=== PATIENT | female | born 2000 | race Caucasian/White ===

== ENCOUNTER 2023-12-10 07:53 | Emergency (ER) | payer OTHER ==
[2023-12-10] MEDS ORDERED: Ketorolac Tromethamine 30 MG (1 mL) VIAL ONE (08:24)
[2023-12-10] MEDS ORDERED: Pantoprazole 40 MG VIAL ONE (08:24)
[2023-12-10] MEDS ORDERED: Ondansetron PF 4 MG/2 ML Vial ONE (08:24)
[2023-12-10 08:45] LABS: BHCG - Serum Negative (NEGATIVE); Pregs Control Background? CLEAR/WHITE (CLR/WHITE); Pregs Control Bar Appear? YES (CONTROL BAR)
[2023-12-10 08:53] LABS: ALT (SGPT) 13 U/L (8-55); AST (SGOT) 16 U/L (5-34); Albumin 4.9 g/dL (3.5-5.0); Alkaline Phosphatase 82 U/L (40-110); Anion Gap 18 mmol/L (10-20); BUN (Urea Nitrogen) 8 mg/dL (7.0-18.7); Bilirubin, Total 0.5 mg/dL (0.2-1.2); Calc. Creatinine Clearance 0 mL/min (70-130); Calcium 10.1 mg/dL (7.8-10.44); Carbon Dioxide 20 mmol/L (22-29); Chloride 104 mmol/L (98-107); Estimated GFR 85; Globulin 4.2 g/dL (2.4-3.5); Glucose 102 mg/dL (70-105); Lipase 22 U/L (8-78); Potassium 3.3 mmol/L (3.5-5.1); Protein, Total 9.1 g/dL (6.0-8.3); Sodium 139 mmol/L (136-145)
[2023-12-10 08:55] LABS: #Basophils 0.05 10x3/uL (0.0-0.2); #Eosinophils 0.07 10x3/uL (0.0-0.5); #Monocytes 0.57 10x3/uL (0.0-1.1); #Neutrophils 7.84 10x3/uL (1.5-8.4); %Basophils 0.5 % (0.0-2.0); %Eosinophils 0.7 % (0.0-6.0); %Lymphocytes 15.7 % (18.0-47.0); %Monocytes 5.6 % (0.0-10.0); %Neutrophils 77.2 % (40.0-75.0); Hematocrit 37.2 % (34.9-44.5); Mean Corpuscular HGB CONC 32.3 g/dL (32.0-36.0); Mean Corpuscular Hemoglobin 25.7 pg (27.0-33.0); Mean Corpuscular Volume 79.7 fL (81.6-98.3); Mean Platelet Volume 9.8 fL (7.4-10.4); Platelet Count 538 10x3/uL (150-450); RBC Distribution Width 16.8 % (11.5-14.5); Red Blood Cell (RBC) Count 4.67 10x6/uL (3.90-5.03); White Blood Cell (WBC) Count 10.2 10x3/uL (3.5-10.5)
[2023-12-10 09:27] LABS: Bilirubin Neg (Negative); Blood, Urine Negative (Negative); Glucose, Urine (Dipstick) Normal (Negative); Ketone, Urine 50 mg/dL (Negative); Leukocyte 25 (Negative); Nitrite Negative (Negative); Protein, Urine (Dipstick) 30 mg/dl (Neg-Trace); Urobilinogen Normal mg/dL (Less than 2)
[2023-12-10 09:29] LABS: Clarity Clear (Clear)
[2023-12-10 10:14] LABS: CAUTI Indications for Culture Pelvic or flank pain; RBC/HPF 0-3 HPF (0-3); WBC/HPF 0-3 HPF (0-3)
[2023-12-10 10:15] LABS: Bacteria/HPF 1+ HPF (None Seen); Mucous/LPF 1+ LPF (<2+)
[2023-12-10 10:16] LABS: Urine Culture Reflex No No
== END 2023-12-10 10:55 | disposition home or self-care (01) ==
LOC: CSHERS 07:53
DX: R11.2 Nausea with vomiting, unspecified (principal); R19.7 Diarrhea, unspecified; Z55.6 Problems related to health literacy
CPT/HCPCS: 80053; 81001; 83690; 84703; 85025; 87428; 96374; 96375; J1885; J2405; J2470

== ENCOUNTER 2023-12-11 05:23 | Observation (INO) | payer OTHER ==
[2023-12-11] MEDS ORDERED: Haloperidol Lactate 5 MG/ML VIAL ONE (06:05)
[2023-12-11 06:17] LABS: #Basophils 0.07 10x3/uL (0.0-0.2); #Eosinophils 0.23 10x3/uL (0.0-0.5); #Monocytes 1.28 10x3/uL (0.0-1.1); #Neutrophils 6.87 10x3/uL (1.5-8.4); %Basophils 0.6 % (0.0-2.0); %Eosinophils 1.8 % (0.0-6.0); %Lymphocytes 32.5 % (18.0-47.0); %Monocytes 10.2 % (0.0-10.0); %Neutrophils 54.6 % (40.0-75.0); Hematocrit 32.2 % (34.9-44.5); Mean Corpuscular HGB CONC 34.2 g/dL (32.0-36.0); Mean Corpuscular Hemoglobin 26.6 pg (27.0-33.0); Mean Platelet Volume 9.9 fL (7.4-10.4); Platelet Count 504 10x3/uL (150-450); Red Blood Cell (RBC) Count 4.13 10x6/uL (3.90-5.03); White Blood Cell (WBC) Count 12.6 10x3/uL (3.5-10.5)
[2023-12-11 06:33] LABS: Acetaminophen Less than 10 mcg/mL (Less than 10); Alcohol Less than 10.0 mg/dL (Less than 10); Salicylate Less than 8.0 mg/dL (Less than 8.0)
[2023-12-11 06:36] LABS: ALT (SGPT) 14 U/L (8-55); AST (SGOT) 14 U/L (5-34); Albumin 4.3 g/dL (3.5-5.0); Alkaline Phosphatase 81 U/L (40-110); Anion Gap 20 mmol/L (10-20); BUN (Urea Nitrogen) 7 mg/dL (7.0-18.7); Bilirubin, Total 0.5 mg/dL (0.2-1.2); Calc. Creatinine Clearance 0 mL/min (70-130); Calcium 9.9 mg/dL (7.8-10.44); Carbon Dioxide 14 mmol/L (22-29); Chloride 109 mmol/L (98-107); Estimated GFR 77; Globulin 3.4 g/dL (2.4-3.5); Glucose 200 mg/dL (70-105); Lipase 28 U/L (8-78); Potassium 3.3 mmol/L (3.5-5.1); Protein, Total 7.7 g/dL (6.0-8.3); Sodium 140 mmol/L (136-145)
[2023-12-11] MEDS ORDERED: Metoclopramide HCl 10 MG (2 mL) VIAL ONE (06:37)
[2023-12-11 06:56] LABS: Bilirubin Neg (Negative); Blood, Urine Negative (Negative); Clarity Slightly Cloudy (Clear); Glucose, Urine (Dipstick) Normal (Negative); Ketone, Urine 50 mg/dL (Negative); Leukocyte Negative (Negative); Nitrite Negative (Negative); Protein, Urine (Dipstick) 100 mg/dl (Neg-Trace); Specific Gravity, Urine 1.015 (1.005-1.030); Urobilinogen Normal mg/dL (Less than 2); pH, Urine 6.5 (5.0-9.0)
[2023-12-11 07:04] LABS: Amphetamine Not Detected (NotDetected); Barbiturates Screen Not Detected (NotDetected); Benzodiazepine Screen Not Detected (NotDetected); Cocaine Metabolite Screen Not Detected (NotDetected); Methadone Not Detected (NotDetected); Methamphetamine Not Detected (NotDetected); Opiate Screen Not Detected (NotDetected); Oxycodone Screen Not Detected (NotDetected); Phencyclidine (PCP) Not Detected (NotDetected); THC/Cannabinoid Screen Detected (NotDetected); Tricyclic Screen Not Detected (NotDetected)
[2023-12-11 07:07] LABS: Bacteria/HPF 2+ HPF (None Seen); CAUTI Indications for Culture Pelvic or flank pain; RBC/HPF 0-3 HPF (0-3)
[2023-12-11 07:08] LABS: Urine Culture Reflex No No
[2023-12-11] MEDS ORDERED: Morphine 4 MG/ML VIAL ONE (07:50)
[2023-12-11] MEDS ORDERED: diphenhydrAMINE 50 MG/ML VIAL ONE (07:50)
[2023-12-11] MEDS ORDERED: Magnesium 2 GM/50 ML BAG (IN WATER) ONE (08:20)
[2023-12-11] MEDS ORDERED: Acetaminophen 325 MG TAB PO PRN (09:17)
[2023-12-11] MEDS ORDERED: Potassium Chloride 20 MEQ (100 mL) BAG ONE (12:38)
[2023-12-11] MEDS: Potassium Chloride 20 MEQ in Premix 1 BAG IVPB SCH ×2 (12:41→21:25)
[2023-12-11] MEDS ORDERED: Iopamidol 370 76% 100 ML VIAL ONE (12:57)
[2023-12-11] MEDS: Promethazine HCl 12.5 MG in Sodium Chloride 0.9% 50 ML IVPB PRN (13:13)
[2023-12-11 14:33] VITALS: BMI 21.2
[2023-12-11] MEDS: Capsaicin 0.025% Cream 60 gm Tube TOP SCH (15:50)
[2023-12-11] MEDS: Ondansetron PF 4 MG/2 ML Vial IVP PRN (16:05)
[2023-12-11] MEDS: Multivitamins, Adult 10 ML, Folic Acid 1 MG, Thiamine HCl 100 MG, Admixture Fee 1 EACH ... IV SCH (16:05)
[2023-12-11] MEDS: Ketorolac Tromethamine 30 MG (1 mL) VIAL IVP PRN (16:45)
[2023-12-11] MEDS ORDERED: Albuterol 2.5 MG (3 mL) NEB NEB PRN (19:05)
[2023-12-11] MEDS: traZODone HCl 50 MG TAB PO PRN (21:25)
[2023-12-11] MEDS: Lorazepam 2 MG/ML VIAL SLOW IVP SCH (23:06)
[2023-12-12 03:28] LABS: #Basophils 0.03 10x3/uL (0.0-0.2); #Eosinophils 0.01 10x3/uL (0.0-0.5); #Monocytes 2.07 10x3/uL (0.0-1.1); %Basophils 0.2 % (0.0-2.0); %Eosinophils 0.1 % (0.0-6.0); %Lymphocytes 15.3 % (18.0-47.0); %Monocytes 11.6 % (0.0-10.0); %Neutrophils 72.4 % (40.0-75.0); Hematocrit 28.9 % (34.9-44.5); Hemoglobin 9.6 g/dL (12.0-15.5); Mean Corpuscular HGB CONC 33.2 g/dL (32.0-36.0); Mean Corpuscular Hemoglobin 26.5 pg (27.0-33.0); Mean Corpuscular Volume 79.8 fL (81.6-98.3); Platelet Count 417 10x3/uL (150-450); RBC Distribution Width 17.2 % (11.5-14.5); Red Blood Cell (RBC) Count 3.62 10x6/uL (3.90-5.03); White Blood Cell (WBC) Count 17.8 10x3/uL (3.5-10.5)
[2023-12-12 03:49] LABS: Anion Gap 14 mmol/L (10-20); BUN (Urea Nitrogen) 5 mg/dL (7.0-18.7); Calc. Creatinine Clearance 93 mL/min (70-130); Carbon Dioxide 17 mmol/L (22-29); Chloride 111 mmol/L (98-107); Estimated GFR 105; Glucose 100 mg/dL (70-105); Potassium 3.4 mmol/L (3.5-5.1); Sodium 139 mmol/L (136-145)
[2023-12-12] MEDS: hydrOXYzine 25 MG TAB PO SCH (09:46)
[2023-12-12] MEDS: Potassium Chloride 20 MEQ TAB PO SCH (09:47)
[2023-12-12] MEDS: Pantoprazole 40 MG VIAL IVP SCH (09:47)
[2023-12-12] MEDS: Sertraline 25 MG TAB PO SCH (09:48)
[2023-12-12] MEDS: Enoxaparin 30 MG (0.3 mL) SYRINGE SC SCH (09:54)
[2023-12-12] MEDS: Lactated Ringer's 1,000 ML IV SCH (10:05)
[2023-12-12 10:39] VITALS: BP 110/76; TEMP 98.1
[2023-12-12] MEDS ORDERED: hydrOXYzine 25 MG TAB PO SCH (15:00)
== END 2023-12-12 11:10 | disposition home or self-care (01) ==
LOC: CSHERS 05:23 → CSHERHOLD 08:56 → CSHTELE 14:34
PROVIDERS: ADMIT Internal Medicine; ATTEND Internal Medicine
DX: K58.9 Irritable bowel syndrome, unspecified (principal); F12.10 Cannabis abuse, uncomplicated; E87.6 Hypokalemia; Z88.1 Allergy status to other antibiotic agents; Z88.8 Allergy status to other drugs, medicaments and biological substances; Z79.899 Other long term (current) drug therapy
CPT/HCPCS: 36415; 74177; 80048; 80053; 80306; 80307; 81001; 83690; 85025; 93005; 94760; 94762; 96375; 96376; G0378; J1200; J1630; J1885; J2060; J2272; J2405; J2470; J2550; J2765; J3411; J3475; J3480; J7042; Q9967

== ENCOUNTER 2023-12-13 06:34 | Emergency (ER) | payer OTHER ==
[2023-12-13] MEDS ORDERED: Droperidol 5 MG/2 ML VIAL ONE (06:53)
[2023-12-13 07:23] LABS: #Basophils 0.08 10x3/uL (0.0-0.2); #Eosinophils 0.06 10x3/uL (0.0-0.5); #Monocytes 0.84 10x3/uL (0.0-1.1); #Neutrophils 10.07 10x3/uL (1.5-8.4); %Basophils 0.6 % (0.0-2.0); %Eosinophils 0.5 % (0.0-6.0); %Lymphocytes 14.7 % (18.0-47.0); %Monocytes 6.4 % (0.0-10.0); %Neutrophils 77.3 % (40.0-75.0); Hematocrit 32.6 % (34.9-44.5); Hemoglobin 10.4 g/dL (12.0-15.5); Mean Corpuscular HGB CONC 31.9 g/dL (32.0-36.0); Mean Corpuscular Volume 81.5 fL (81.6-98.3); Mean Platelet Volume 9.6 fL (7.4-10.4); Platelet Count 497 10x3/uL (150-450); RBC Distribution Width 17.4 % (11.5-14.5)
[2023-12-13 07:31] LABS: BHCG - Serum Negative (NEGATIVE); Pregs Control Background? CLEAR/WHITE (CLR/WHITE); Pregs Control Bar Appear? YES (CONTROL BAR)
[2023-12-13 07:42] LABS: ALT (SGPT) 19 U/L (8-55); AST (SGOT) 21 U/L (5-34); Albumin 4.2 g/dL (3.5-5.0); Alkaline Phosphatase 72 U/L (40-110); Anion Gap 16 mmol/L (10-20); BUN (Urea Nitrogen) 6 mg/dL (7.0-18.7); Bilirubin, Total 0.3 mg/dL (0.2-1.2); Calc. Creatinine Clearance 0 mL/min (70-130); Calcium 9.4 mg/dL (7.8-10.44); Carbon Dioxide 16 mmol/L (22-29); Chloride 114 mmol/L (98-107); Estimated GFR 82; Globulin 3.4 g/dL (2.4-3.5); Glucose 120 mg/dL (70-105); Lipase 30 U/L (8-78); Magnesium 1.7 mg/dL (1.6-2.6); Protein, Total 7.6 g/dL (6.0-8.3); Sodium 142 mmol/L (136-145)
== END 2023-12-13 07:59 | disposition home or self-care (01) ==
LOC: CSHERS 06:34
DX: F41.9 Anxiety disorder, unspecified (principal); R11.10 Vomiting, unspecified
CPT/HCPCS: 36415; 80053; 83690; 83735; 84703; 85025; 93005; J1790

== ENCOUNTER 2023-12-13 10:32 | Emergency (ER) | payer OTHER ==
[2023-12-13] MEDS ORDERED: Midazolam HCl 10 mg/2 ml Vial ONE (10:39)
[2023-12-13] MEDS ORDERED: ALPRAZolam 0.5 MG TAB ONE (13:00)
== END 2023-12-13 18:08 | disposition home or self-care (01) ==
LOC: CSHERS 10:32
DX: F41.9 Anxiety disorder, unspecified (principal); F12.10 Cannabis abuse, uncomplicated
CPT/HCPCS: 36415; 80053; 83690; 83735; 84703; 85025; 93005; 96372; 99283; 99284; J1790; J2250